=== PATIENT | female | born 1980 | race Hispanic/Latino ===

== ENCOUNTER → 2022-05-13 | Day surgery (SDC) | payer OTHER ==
[~2022-05-13] MED LIST: LIDOCAINE HCL 2% LOCAL INJ 5 ML SDV VIAL INJ ONE; MIDAZOLAM HCL 2 MG/2 ML VIAL ONE; PEPCID AC10 MG PO; PROPOFOL IV EMULSION 10 MG/ML 20 ML VIAL ONE
[2022-05-13 10:55] VITALS: BP 113/61
== END | disposition home or self-care (01) ==
LOC: OR 08:39
PROVIDERS: ATTEND Internal Medicine Gastroenterology
DX: K21.9 Gastro-esophageal reflux disease without esophagitis (principal); K29.50 Unspecified chronic gastritis without bleeding; K20.90 Esophagitis, unspecified without bleeding; Z71.3 Dietary counseling and surveillance; F41.9 Anxiety disorder, unspecified
CPT/HCPCS: 43239; 81025; J2001; J2250